=== PATIENT | male | born 1980 | race Caucasian/White ===

== ENCOUNTER 2016-07-07 03:34 | Emergency (ER) | payer OTHER ==
[2016-07-07 03:40] VITALS: TEMP 97.5
--- NOTE | 2016-07-07 03:59 | EDPHY ---
H & P Stated Complaint: foreskin immobile after sexual intercourse; Hx of same 2ya Time Seen by Provider: 07/07/16 03:41 HPI/ROS: Chief complaint: Problem with foreskin HPI: 35-year-old male had sexual intercourse earlier this morning. Since that time he has been unable to reduce his foreskin. States that the tip of his penis is swollen and his foreskin feels tight around the base. He has had this happen once before which required reduction emergency department. He did not follow up with Urology. Denies any fevers or chills. No dysuria. No discharge. No rash. ROS: 10 point Review of Systems is negative except as noted in the HPI. Past medical history: Paraphimosis Medications: None Allergies: None Physical exam: Gen: Awake, Alert, uncomfortable HEENT: Abd: Soft, non-tender, no guarding Genital: The glans of his penis is swollen and edematous. The foreskin is retracted and tight at the base consistent with a paraphimosis. There is no discharge. There is no rash or lesions. Skin: no rash Neuro: CN II-XII intact, Sensation grossly intact, Strength 5/5 in bilateral upper and lower extremities - Personal History Current Tetanus/Diphtheria Vaccine: Yes - Medical/Surgical History Hx Asthma: No Hx Chronic Respiratory Disease: No Hx Diabetes: No Hx Cardiac Disease: No Hx Renal Disease: No Hx Cirrhosis: No Hx Alcoholism: No Hx HIV/AIDS: No Hx Splenectomy or Spleen Trauma: No Other PMH: PSHx: nasal, ear. PMHx: denies - Social History Smoking Status: Never smoked Constitutional: Initial Vital Signs Temperature (C) 36.4 C 07/07/16 03:36 Heart Rate 81 07/07/16 03:36 Respiratory Rate 19 07/07/16 03:36 Blood Pressure 126/80 H 07/07/16 03:36 O2 Sat (%) 98 07/07/16 03:36 O2 Delivery Mode Room Air Allergies/Adverse Reactions: No Known Allergies Allergy (Unverified 10/02/14 15:48) Home Medications: Medication Instructions Recorded NK [No Known Home Meds] 07/07/16 Medical Decision Making ED Course/Re-evaluation: Paraphimosis reduction: Pressure was applied to the glans to manually decompress the edema. This was applied for approximately 5 minutes. There was noted reduction in the swelling of the glands and I was able to reduce the foreskin over the glans without any further difficulty. This resulted in relief of the patient's discomfort. Ice was then applied to the affected area. Patient after observation is continuing to feel well. I have instructed him that he must follow up with Urology for further evaluation. Patient states he will do so. He will continue with ice packs. Return for any worsening problems. Departure - Departure Disposition: Home, Routine, Self-Care Clinical Impression: Paraphimosis Condition: Good Instructions: Acute Paraphimosis (ED) Additional Instructions: Apply ice to the affected area for 10 minutes out of every hour for the next 24 hours while awake. Follow up with Urology in the next 2-3 days. Referrals: Patient,NotPresent [Primary Care Provider] - As per Instructions Harshal Malik MD [Medical Doctor] - As per Instructions
[2016-07-07 04:42] VITALS: BP 122/74; PULSE 74; RESP 16; O2SAT 96
== END 2016-07-07 04:37 | disposition home or self-care (01) ==
DX: N47.2 Paraphimosis (principal)